=== PATIENT | female | born 1970 | race Caucasian/White ===

== ENCOUNTER 2019-10-18 04:18 | Emergency (ER) | payer BC ==
[~2019-10-18] VITALS: Ht 167.6 cm; Wt 84.7 kg
[~2019-10-18 04:18] MED LIST: NO HOME MEDS
[2019-10-18 04:47] LABS: CLARITY,URINE SLIGHTLY CLOUDY (Clear); COLOR,URINE YELLOW (Yellow); GLUCOSE, URINE NEGATIVE (Neg); KETONES,URINE NEGATIVE (Neg); LEUKOCYTE ESTERASE ,URINE NEGATIVE (Neg); NITRITES, URINE NEGATIVE (Neg); OCCULT BLOOD,URINE MODERATE (Neg); PROTEIN,URINE NEGATIVE (Neg); URINE HCG NEGATIVE (NEG); UROBILINOGEN,URINE 0.2 E.U/dL (0.2-1.0)
[2019-10-18 04:51] LABS: UA COLLECTION TYPE CLN CATCH MIDSTREAM
[2019-10-18 04:53] LABS: BACTERIA,URINE 1+ /HPF (Neg); RBC,URINE 0-2 /HPF (0-2); SQUAMOUS EPITHELIAL CELL,UR MANY /LPF (FEW); WBC,URINE NONE SEEN /HPF (0-4)
[2019-10-18 05:02] LABS: BASOPHILS % (AUTO) 0.6 % (0-1); EOSINOPHILS # (AUTO) 0.1 X10'3 (0-0.9); EOSINOPHILS % (AUTO) 1.8 % (0-6); HEMOGLOBIN 13.6 g/dl (12.0-16.0); LYMPHOCYTES # (AUTO) 1.4 X10'3 (1.1-4.8); LYMPHOCYTES % (AUTO) 17.1 % (21-51); MEAN CORPUSCULAR HEMOGLOBIN 30.4 PG (27.0-31.0); MEAN CORPUSCULAR HGB CONC 33.9 g/dL (33.0-36.5); MEAN CORPUSCULAR VOLUME 89.6 FL (78-98); MEAN PLATELET VOLUME 7.6 FL (7.4-10.4); MONOCYTES # (AUTO) 0.8 X10'3 (0-0.9); MONOCYTES % (AUTO) 9.7 % (2-12); NEUTROPHILS # (AUTO) 5.7 X10'3 (1.8-7.7); NEUTROPHILS % (AUTO) 70.8 % (42-75); PLATELET COUNT 278 X10'3 (140-440); RED BLOOD COUNT 4.46 X10'6 (4.20-5.60); RED CELL DISTRIBUTION WIDTH 13.5 % (11.5-14.5)
[2019-10-18 05:19] LABS: ALANINE AMINOTRANSFERASE 23 U/L (12-78); ALBUMIN 3.9 G/DL (3.4-5.0); ALBUMIN/GLOBULIN RATIO 1.3 (1.1-1.5); ALKALINE PHOSPHATASE 47 IU/L (46-116); ANION GAP 9 (8-16); ASPARTATE AMINO TRANSFERASE 21 U/L (10-37); BILIRUBIN,TOTAL 0.6 MG/DL (0.1-1.0); BLOOD UREA NITROGEN 14 MG/DL (7-18); BUN/CREATININE RATIO 16.3 (6.6-38.0); CALCIUM 8.6 MG/DL (8.5-10.1); CHLORIDE 104 MMOL/L (99-107); CREATININE 0.86 MG/DL (0.40-0.90); GLUCOSE 95 MG/DL (70-104); LIPASE 103 U/L (73-393); POTASSIUM 3.8 MMOL/L (3.5-5.1); SODIUM 140 MMOL/L (135-145); eGFR 70 ML/MIN
[2019-10-18] MEDS ORDERED: ondansetron/PF 4mg/2ml inj IV ONE (06:25)
[2019-10-18] MEDS ORDERED: dicyclomine 10 MG capsule PO ONE (06:25)
[2019-10-18] MEDS ORDERED: acetaminophen 325mg tablet PO ONE (06:25)
[2019-10-18] MEDS ORDERED: ketorolac trometh. 30mg/ml inj. IV ONE (06:25)
[2019-10-18] MEDS ORDERED: ketorolac tromethamine 15mg/ml inj. IV ONE (06:50)
[2019-10-18] MEDS ORDERED: metroNIDAZOLE-Flagyl 500mg/NS 100 ML IV STA (08:13)
[2019-10-18] MEDS ORDERED: ciprofloxacin lact 400MG/200ML 200 ML IV ONE (08:15)
[2019-10-18] MEDS ORDERED: ONDA8TAB6 PO (08:19)
[2019-10-18] MEDS ORDERED: HYDR-3965 PO (08:19)
[2019-10-18] MEDS ORDERED: CIP750T PO (08:19)
[2019-10-18] MEDS ORDERED: METR-159 PO (08:19)
[2019-10-18 11:07] VITALS: BP 127/70
== END 2019-10-18 11:10 | disposition home or self-care (01) ==
LOC: ER 04:18
DX: K57.32 Diverticulitis of large intestine without perforation or abscess without bleeding (principal); R19.7 Diarrhea, unspecified; Z72.89 Other problems related to lifestyle; Z79.899 Other long term (current) drug therapy
CPT/HCPCS: 36415; 74176; 76830; 76856; 80053; 81001; 81025; 83690; 85025; 96365; 96366; 96368; 96375; 99285; J0744; J1885; J2405; J3490